=== PATIENT | male | born 1955 | race Native Hawaiian/Other Pacific Islander ===

== ENCOUNTER 2017-12-05 14:02 | Outpatient (CLI) | payer BC | END 2017-12-05 22:51 | disposition home or self-care (01) | LOC: MRI 14:02 | DX: M25.511 Pain in right shoulder (principal) ==

== ENCOUNTER 2018-08-10 13:41 | Outpatient (CLI) | payer OTHER | END 2018-08-10 19:49 | disposition home or self-care (01) | LOC: MRI 13:41 | DX: M54.17 Radiculopathy, lumbosacral region (principal) ==

== ENCOUNTER 2018-08-30 13:54 | Outpatient (CLI) | payer OTHER | END 2018-08-30 19:58 | disposition home or self-care (01) | LOC: RAD 13:54 | DX: Z01.818 Encounter for other preprocedural examination (principal) ==

== ENCOUNTER 2019-08-05 10:19 | Outpatient (CLI) | payer OTHER | END 2019-08-05 19:06 | disposition home or self-care (01) | LOC: MRI 10:19 | DX: M54.17 Radiculopathy, lumbosacral region (principal) ==

== ENCOUNTER 2020-08-26 09:29 | Outpatient (CLI) | payer OTHER | END 2020-08-26 21:06 | disposition home or self-care (01) | LOC: INF 09:29 | PROVIDERS: ATTEND Internal Medicine | DX: Z23 Encounter for immunization (principal) | CPT/HCPCS: 96372 ==

== ENCOUNTER 2020-09-22 09:24 | Outpatient (CLI) | payer OTHER | END 2020-09-22 20:11 | disposition home or self-care (01) | LOC: INF 09:24 | PROVIDERS: ATTEND Internal Medicine | DX: Z23 Encounter for immunization (principal) | CPT/HCPCS: 96372 ==